=== PATIENT | female | born 1990 | race American Indian/Alaskan Native ===

== ENCOUNTER 2017-11-13 15:26 | Emergency (ER) | payer OTHER ==
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
== END 2017-11-13 16:21 ==
LOC: DL.ED 15:26
DX: T14.91XA Suicide attempt, initial encounter (principal); F12.10 Cannabis abuse, uncomplicated; Z72.89 Other problems related to lifestyle; X83.8XXA Intentional self-harm by other specified means, initial encounter
CPT/HCPCS: 36415; 80305; 81001; 81025; 99283; 99284; G0480